=== PATIENT | female | born 1965 | race Caucasian/White ===

== ENCOUNTER → 2020-01-23 15:12 | Outpatient (BNVA) | payer OTHER, SELFPAY | PROVIDERS: Family Provider Nurse Practitioner Family; Visit Provider Nurse Practitioner | DX: Z20.828 Contact with and (suspected) exposure to other viral communicable diseases (principal) | CPT/HCPCS: 87635 ==

== ENCOUNTER → 2021-05-20 16:40 | Outpatient (BNVA) | payer SELFPAY | PROVIDERS: Family Provider Nurse Practitioner Family | DX: A64 Unspecified sexually transmitted disease (principal); Z20.2 Contact with and (suspected) exposure to infections with a predominantly sexual mode of transmission; N89.8 Other specified noninflammatory disorders of vagina | CPT/HCPCS: 81000; 87491; 87591; 87661 ==

== ENCOUNTER 2023-07-25 06:43 | Emergency (ER) | payer SELFPAY ==
--- NOTE | 2023-07-25 06:50 | XRR_ITS ---
PROCEDURE INFORMATION: Exam: XR Left Hand Exam date and time: 07/25/2023 7:11 AM Age: 57 years old Clinical indication: Pain; Hand; Left TECHNIQUE: Imaging protocol: Radiologic exam of the left hand. Views: 3 or more views. COMPARISON: No relevant prior studies available. FINDINGS: Bones/joints: No acute fracture or dislocation. Joint spaces are preserved. Soft tissues: Normal. XR/XR hand LT min 3V* [id number] IMPRESSION: No acute fracture or dislocation.
[2023-07-25 07:07] VITALS: BP 184/111; PULSE 90; RESP 18; TEMP 36.8; O2SAT 98; BMI 27.3
--- NOTE | 2023-07-25 10:41 | W.ED.EXTPRO ---
HPI - Extremity Problem General: Chief complaint: Extremity Injury, Upper Stated complaint: left hand pain Time Seen by Provider: 07/25/23 06:49 Source: patient Mode of arrival: ambulatory Limitations: no limitations History of Present Illness: 57-year-old female who states that she has been carrying and moving a lot of objects a few days ago and started having some pain at her left thumb since then. She has pain in the base of the left thumb is worse with movement she denies any specific injury. She rates her pain a 6 out of 10. Associated symptoms: Deny chest pain, fever(s) or rash Review of Systems Const: Denies: fever(s), chills, body aches or change in appetite ENMT: Denies: throat pain or dental pain Card: Denies: chest pain Resp: Denies: dyspnea GI: Denies: abdominal pain, nausea, vomiting or diarrhea Musc: Reports: extremity pain; Denies: neck pain or back pain Skin/Breast: Denies: rash Neuro: Denies: headache(s) PFSH ED PFSH: Social History Smoking and tobacco/nicotine status: current every day tobacco/nicotine user Physical Exam Const: COMMON NORMALS: no acute distress, patient oriented x3 and healthy appearing HENMT: COMMON NORMALS: normocephalic and atraumatic HEAD & SCALP: normocephalic and atraumatic Eye: COMMON NORMALS: Equal, round and reactive pupils present and EOMs intact bilaterally PUPIL: Yes Equal, round and reactive pupils present Neck/C-Spine: COMMON NORMALS: full ROM and supple Chest: COMMONS NORMALS: normal inspection of the chest Resp: COMMON NORMALS: normal respiratory effort Extremity: COMMON NORMALS: full ROM NARRATIVE EXTREMITY EXAM: Positive Benigno's test tenderness at the base of the thumb and anatomic snuffbox Neuro: COMMON NORMALS: patient oriented x3, moves all extremities and no focal motor deficits Psych: COMMON NORMALS: mental status grossly normal, Normal thought process present and cooperative THOUGHT PROCESS: Normal thought process present Skin: COMMON NORMALS: no rashes or lesions noted and no wounds GENERAL SKIN EXAM: no rashes or lesions noted Course Vital Signs: Vital signs: Vital Signs Temperature 98.2 F 07/25/23 07:07 Pulse Rate 90 07/25/23 07:07 Respiratory Rate 18 06/19/24 07:07 Blood Pressure 184/111 07/25/23 07:07 Pulse Oximetry 98 07/25/23 07:07 Oxygen Delivery Me thod Room Air 07/25/23 07:07 MDM - Extremity (Nontraumatic) Medical Decision Making Patient presents with likely de Quervain's tenosynovitis imaging here is normal we will get her follow-up with orthopedics she is to ice rest we will place her on Naprosyn she is follow-up with Ortho as scheduled return if worsening Medical Records I reviewed the patient's medical records. Lab Data Radiology Impressions Hand X-Ray 07/25/23 06:50 IMPRESSION: No acute fracture or dislocation. All radiology interpretation(s) finalized by discharge Discharge Plan Discharge Patient Disposition: Home Clinical Impression: De Quervain's tenosynovitis, left Condition: Stable Prescriptions: New Naprosyn 500 mg tablet 500 mg PO BID PRN (Reason: pain) Qty: 20 0RF No Action azithromycin 1 gram packet 1 g PO DAILY Qty: 1 0RF fluconazole [Diflucan] 150 mg tablet 150 mg PO DAILY Qty: 1 0RF Rx Instructions: start in 48 hours if symptoms persists Discharge Orders: Discharge ED (Routine); Ordered 07/25/23 Ordered By: Jaydon Kern Referrals: KERVIN Bearden FNP [Family Provider] - Zeke Cazares DO [Physician] - 1-3 days Discharge Diet: Advance as tolerated Discharge Activity: Resume usual activity Patient Instructions: Tendinitis (ED) Coding Level of Care Code ED Real Property Evaluator for Vitaliy Travis
[2023-07-25] MEDS: naproxen 500 mg Tablet PO (10:46)
[2023-07-25 10:51] VITALS: PULSE 66; RESP 16; O2SAT 99
--- NOTE | 2023-07-26 08:02 | DCPLANNER ---
message sent to ortho for er f/u
== END 2023-07-25 10:53 | disposition home or self-care (01) ==
PROVIDERS: Emergency Provider Emergency Medicine; Family Provider Nurse Practitioner Family
DX: M65.4 Radial styloid tenosynovitis [de Quervain] (principal); Z72.0 Tobacco use
CPT/HCPCS: 73130; 99283

== ENCOUNTER 2024-01-12 00:12 | Emergency (ER) | payer SELFPAY ==
[2024-01-12 00:16] VITALS: BP 194/110; PULSE 94; RESP 22; TEMP 36.4; O2SAT 98; BMI 26.4
[2024-01-12] MEDS: diphenhydrAMINE 50 mg/mL SDV 1mL IM (00:50)
[2024-01-12] MEDS: predniSONE 20 mg Tablet 60 MG PO (00:50)
--- NOTE | 2024-01-12 01:06 | W.ED.ALLEREA ---
HPI - Allergic Reaction General: Chief complaint: Allergic Reaction Stated complaint: allergic reaction Time Seen by Provider: 01/12/24 00:27 History of Present Illness: HPI narrative: 58-year-old female who says she is allergic to fleas. She moved into a trailer house recently, and this evening noticed itchy rashes to her arms, legs, and now developing on her trunk. No trouble breathing. No wheezing. No swelling of her face or tongue. She did not have any Benadryl at home, so she came here Related Data Previous Rx's Medication Instructions Recorded diphenhydramine HCl 25 mg capsule 25 mg PO Q4H PRN allergic reaction 01/12/24 (Benadryl) #30 caps methylprednisolone 4 mg tablets in See Rx Instructions PO .COMPLEX 01/12/24 a dose pack (Medrol (Jean Pierre)) #21 ea Allergies Allergy/AdvReac Type Severity Reaction Status Date / Time Sulfa (Sulfonamide Allergy Mild HIVES Verified 01/12/24 00:23 Antibiotics) PFSH ED PFSH: Social History Smoking and tobacco/nicotine status: unknown if used tobacco/nicotine Physical Exam Const: GENERAL APPEARANCE: cooperative and anxious; not ill appearing and not frail appearing HENMT: COMMON NORMALS: normocephalic, atraumatic and Normal external nose present HEAD & SCALP: normocephalic and atraumatic FACE & SINUS: normal facial exam and face symmetric NOSE: Normal external nose present Eye: COMMON NORMALS: Equal, round and reactive pupils present and EOMs intact bilaterally PUPIL: Yes Equal, round and reactive pupils present Neck/C-Spine: GENERAL: Yes trachea midline Chest: CHEST: Yes Symmetrical chest wall rise Resp: COMMON NORMALS: normal respiratory effort, No retractions, No use of accessory muscles and clear to auscultation bilaterally AUSCULTATION: clear to auscultation bilaterally Cardio: COMMON NORMALS: regular rate and regular rhythm RATE: regular rate RHYTHM: regular rhythm GI: COMMON NORMALS: Normal to inspection, nondistended, normoactive bowel sounds present Extremity: COMMON NORMALS: no pedal edema Neuro: MAYLIN COMA SCALE: document GCS findings Maylin coma scale eye opening: Spontaneous [place] coma scale verbal response: Orientated [place] coma scale motor response: Obey commands Maylin coma scale total score: 15 SENSORY EXAM: Yes extremities (intact) Psych: COMMON NORMALS: speech normal SPEECH: Yes normal speech Skin: NARRATIVE SKIN EXAM: Widespread urticarial rash. No coalescence on the neck or face. No facial edema Course Vital Signs: Vital signs: Vital Signs Temperature 97.6 F 01/12/24 00:16 Pulse Rate 98 01/12/24 01:14 Respiratory Rate 22 H 01/12/24 00:16 Blood Pressure 136/88 01/12/24 01:14 Pulse Oximetry 99 01/12/24 01:14 Oxygen Delivery Me thod Room Air 01/12/24 00:16 MDM - Allergic Reaction Medical Decision Making Patient was treated with IM Benadryl, and oral prednisone. She will continue with methylprednisolone pack, and use Benadryl as needed. To return for any worsening symptoms especially respiratory lungs. No radiology studies performed this visit Discharge Plan Discharge Patient Disposition: Home Clinical Impression: Allergic reaction Condition: Stable Prescriptions: New diphenhydramine HCl [Benadryl] 25 mg capsule 25 mg PO Q4H PRN (Reason: allergic reaction) Qty: 30 0RF methylprednisolone [Medrol (Jean Pierre)] 4 mg tablets,dose pack See Rx Instructions PO .COMPLEX Qty: 21 0RF Rx Instructions: orally per package directions Discharge Orders: Discharge ED (Routine); Ordered 01/12/24 Ordered By: Yair Toledo Patient Instructions: Allergic Reaction, Opioid Safety, Pain Management Activity Restrictions/Additional Instructions: Medication as directed. Return for worsening symptoms despite treatment. Coding Level of Care Code ED Actuarial Associate for Vitaliy Travis
[2024-01-12 01:14] VITALS: BP 136/88; PULSE 98; O2SAT 99
== END 2024-01-12 01:15 | disposition home or self-care (01) ==
PROVIDERS: Emergency Provider Emergency Medicine
DX: T78.40XA Allergy, unspecified, initial encounter (principal); X58.XXXA Exposure to other specified factors, initial encounter
CPT/HCPCS: 96372; 99284; J1200; J7512

== ENCOUNTER 2024-06-08 15:21 | Emergency (ER) | payer SELFPAY ==
[2024-06-08 15:29] VITALS: BP 237/147; PULSE 100; RESP 16; TEMP 36.7; O2SAT 100; BMI 26.4
--- NOTE | 2024-06-08 16:44 | XRR_ITS ---
PROCEDURE INFORMATION: Exam: XR Right Foot Exam date and time: 06/08/2024 5:17 PM Age: 58 years old Clinical indication: Right; RT foot pain; Unable to bear weight; Unknown injury TECHNIQUE: Imaging protocol: Radiologic exam of the right foot. Views: 3 or more views. COMPARISON: No relevant prior studies available. FINDINGS: Bones/joints: Bones are osteopenic. No acute fracture. Soft tissues: Normal. XR/XR foot RT min 3V* [id number] IMPRESSION: No acute findings.
--- NOTE | 2024-06-08 17:31 | ED_ITS ---
HPI - Extremity Problem General: Chief complaint: Extremity Injury, Lower Stated complaint: rt foot injury Time Seen by Provider: 06/08/24 16:27 History of Present Illness: 58-year-old female presents with right f oot injury. She reports that yesterday she dropped a heavy object on around 10 pounds. That she is continue to have some pain today and want to have it evaluated. Patient is able to bear weight but it is very painful. Patient also has high blood pressure and knows she has high blood pressure but does not want this addressed. Associated symptoms: Deny chest pain or fever(s) Related Data Home Medications ?Medication ?Instructions ?Recorded ?Confirmed No Known Home Medications 06/08/24 0505/30 Allergies Allergy/AdvReac Type Severity Reaction Status Date / Time Sulfa (Sulfonamide Allergy Mild HIVES Verified 01/12/24 00:23 Antibiotics) Review of Systems Const: Reports: chills; Denies: fever(s) Card: Denies: chest pain or palpitations Resp: Denies: dyspnea, productive cough or wheezing GI: Denies: abdominal pain, nausea or vomiting Musc: Reports: extremity pain (Right foot) [facility] ED PFSH: Social History Smoking and tobacco/nicotine status: unknown if used tobacco/nicotine Physical Exam Const: COMMON NORMALS: no acute distress, patient oriented x3 and alert Resp: COMMON NORMALS: normal respiratory effort, No use of accessory muscles and clear to auscultation bilaterally AUSCULTATION: clear to auscultation bilaterally Cardio: COMMON NORMALS: regular rate and regular rhythm RATE: regular rate RHYTHM: regular rhythm Extremity: NARRATIVE EXTREMITY EXAM: Tenderness ball of right foot Neuro: COMMON NORMALS: patient oriented x3, no focal motor deficits and no sensory deficits noted SENSORIUM/ORIENTATION: Yes alert Psych: COMMON NORMALS: mental status grossly normal, cooperative and normal affect Skin: COMMON NORMALS: no rashes or lesions noted, no wounds and turgor normal GENERAL SKIN EXAM: no rashes or lesions noted and turgor normal Course Vital Signs: Vital signs: Vital Signs Temperature 98.0 F 06/08/24 15:29 Pulse Rate 100 06/08/24 15:29 Respiratory Rate 16 06/08/24 15:29 Blood Pressure 237/147 06/08/24 15:29 Pulse Oximetry 100 06/08/24 15:29 Oxygen Delivery Me thod Room Air 06/08/24 15:29 MDM - Extremity (Nontraumatic) Medical Decision Making Patient left AMA prior to receiving results for her x-ray of her foot. Patient got tired of waiting. Patient would not allow us to address her high blood pressure and also skipped taking a blood pressure cuff off. Patient had no obvious deformity on x-ray or on physical exam. Patient was stable and she left AMA XR interpretation done by ED provider, pending radiology final review Discharge Plan Discharge Patient Disposition: Left Against Medical Advice Clinical Impression: Crush injury of right foot, Hypertension Condition: Stable Prescriptions: No Action No Known Home Medications Discharge Activity: Increase activity as tolerated Print Language: Maori Coding Level of Care Code ED Power Press Operator for Vitaliy Travis
== END 2024-06-08 19:40 | disposition left against medical advice (07) ==
PROVIDERS: Emergency Provider Student in an Organized Health Care Education/Training Program
DX: S97.81XA Crushing injury of right foot, initial encounter (principal); I10 Essential (primary) hypertension; W20.8XXA Other cause of strike by thrown, projected or falling object, initial encounter
CPT/HCPCS: 73630; 99283

== ENCOUNTER 2024-12-21 08:19 | Emergency (ER) | payer SELFPAY ==
[2024-12-21 08:27] VITALS: BP 209/125; PULSE 89; RESP 16; TEMP 36.7; O2SAT 100; BMI 23.8
--- NOTE | 2024-12-21 08:30 | XRR_ITS ---
PROCEDURE INFORMATION: Exam: XR Left Wrist Exam date and time: 12/21/2024 8:44 AM Age: 59 years old Clinical indication: Pain; Left; Hit medial side of wrist; Additional info: Injury TECHNIQUE: Imaging protocol: Radiologic exam of the left wrist. Views: 3 or more views. COMPARISON: No relevant prior studies available. FINDINGS: Bones/joints: No acute fracture or malalignment. No worrisome lytic or blastic osseous lesion. No appreciable cortical erosion or periosteal reaction. Joint spaces are preserved. Soft tissues: [id number] wrist soft tissue swelling. No radiopaque foreign body or gas. XR/XR wrist LT min 3V* [id number] IMPRESSION: 1. No acute fracture or malaligment. 2. [id number] wrist soft tissue swelling.
--- NOTE | 2024-12-21 08:34 | ED_ITS ---
HPI - Extremity Injury (Upper) General: Chief Complaint: Extremity Injury, Upper Stated Complaint: L wrist and hand pain Time Seen by Provider: 12/21/24 08:27 Source: patient Mode of arrival: ambulatory Limitations: no limitations History of Present Illness: 59-year-old female states she had hit he r wrist on a shelf on states been having pain in her left wrist since then over the ulnar aspect. States the pain is worse with movement touch rates pain a 4 out of 10 currently denies any other injuries. Related Data Previous Rx's ?Medication ?Instructions ?Recorded naproxen 500 mg tablet (Naprosyn) 500 mg PO BID PRN pa in #20 tabs 12/21/24 Allergies Allergy/AdvReac Type Severity Reaction Status Date / Time Sulfa (Sulfonamide Allergy Mild HIVES Verified 01/12/24 00:23 Antibiotics) adhesive tape Allergy ADR-Itching Verified 12/21/24 08:37 Review of Systems Musc: Reports: extremity pain PFSH ED PFSH: Social History Smoking and tobacco/nicotine status: unknown if used tobacco/nicotine Physical Exam Const: COMMON NORMALS: no acute distress, patient oriented x3 and healthy appearing HENMT: COMMON NORMALS: normocephalic and atraumatic HEAD & SCALP: normocephalic and atraumatic Eye: COMMON NORMALS: conjunctivae normal CONJUNCTIVA: Yes conjunctivae normal Neck/C-Spine: COMMON NORMALS: full ROM and supple Chest: COMMONS NORMALS: normal inspection of the chest Resp: COMMON NORMALS: normal respiratory effort Cardio: COMMON NORMALS: regular rate RATE: regular rate Extremity: COMMON NORMALS: normal to inspection and full ROM NARRATIVE EXTREMITY EXAM: Tenderness over left wrist mainly over the ulnar styloid Neuro: COMMON NORMALS: patient oriented x3, moves all extremities and no focal motor deficits Psych: COMMON NORMALS: mental status grossly normal, Normal thought process present and cooperative THOUGHT PROCESS: Normal thought process present Skin: COMMON NORMALS: no rashes or lesions noted and no wounds GENERAL SKIN EXAM: no rashes or lesions noted Course Vital Signs: Vital signs: Vital Signs Temperature 98.0 F 12/21/24 08:27 Pulse Rate 89 12/21/24 08:27 Respiratory Rate 16 12/21/24 08:27 Blood Pressure 209/125 12/21/24 08:27 Pulse Oximetry 100 12/21/24 08:27 MDM - Extremity Injury (Upper) Medical Decision Making Patient presents with left wrist pain differential includes fracture, contusion, septic joint. Did perform x-ray of her left wrist that showed no acute fracture here. Her exam here is benign no warmth to touch no fever no signs of septic joint. Likely contusion or a arthralgia. She feels improved here after Na prosyn will prescribe her Naprosyn for home we will Jem wrap she is to rest ice compress. Did inform her she is hypertensive here and that she needs follow-up with PCP she understands agrees to plan. XR interpretation done by ED provider, pending radiology final review ED provider radiology interpretation(s): X-ray left wrist no acute fracture Discharge Plan Discharge Patient Disposition: Home Clinical Impression: Contusion of left wrist, initial encounter Condition: Stable Prescriptions: New naproxen [Naprosyn] 500 mg tablet 500 mg PO BID PRN (Reason: pain) Qty: 20 0RF Discharge Orders: Discharge ED (Routine); Ordered 12/21/24 Ordered By: Jaydon Kern Discharge Diet: Advance as tolerated Discharge Activity: Resume usual activity Patient Instructions: Wrist Injury (ED), Arthralgia (ED) Print Language: Dominican Coding Level of Care Code ED Weigher Operator for Vitaliy Travis
[2024-12-21 09:15] VITALS: BP 217/123; PULSE 76; O2SAT 100
== END 2024-12-21 09:17 | disposition home or self-care (01) ==
PROVIDERS: Emergency Provider Emergency Medicine
DX: S60.212A Contusion of left wrist, initial encounter (principal); W22.09XA Striking against other stationary object, initial encounter
CPT/HCPCS: 73110; 99283; J9999